=== PATIENT | male | born 1950 ===

== ENCOUNTER 2022-02-26 02:34 | Outpatient (RCR) | payer BC, SELFPAY | END 2022-03-18 23:59 | disposition home or self-care (01) | LOC: INF 02:34 | PROVIDERS: PCP Nurse Practitioner Family; Visit Provider Internal Medicine Hematology & Oncology | DX: C88.4 Extranodal marginal zone B-cell lymphoma of mucosa-associated lymphoid tissue [MALT-lymphoma] (principal); Z29.8 Encounter for other specified prophylactic measures | CPT/HCPCS: 96372; Q0221 ==